=== PATIENT | male | born 1950 | race Two or more races ===

== ENCOUNTER 2022-10-23 10:13 | Inpatient (IN) | payer OTHER, MEDICAID ==
[~2022-10-23] VITALS: Ht 170.2 cm; Wt 56.7 kg
[2022-10-23] MEDS: ALBUTEROL 6.7GM HFA INHALER ORI SCH (08:58)
[2022-10-23 11:36] LABS: HEMATOCRIT. 38.2 % (42.0-52.0); HEMOGLOBIN. 12.5 g/dL (14.0-18.0); MEAN CORPUSCULAR HGB CONC 32.8 g/dL (31.0-37.0); MEAN CORPUSCULAR VOLUME 94.4 fL (80.0-94.0); MEAN PLATELET VOLUME 8.6 fl (7.4-10.4); PLATELET 179 x1000/uL (130-400); RED BLOOD CELL COUNT 4.05 mill/uL (4.7-6.1); RED CELL DISTRIBUTION WIDTH 13.2 % (11.6-14.6); WHITE BLOOD COUNT 13.5 x1000/uL (4.5-11.0)
[2022-10-23 11:39] LABS: DIFFERENTIAL COMMENT 1
[2022-10-23] MEDS ORDERED: AZITHROMYCIN 500MG/250ML 250 ML IV ONE (11:45)
[2022-10-23] MEDS ORDERED: CEFTRIAXONE 1GM PREMIX 50 ML IV ONE (11:45)
[2022-10-23 12:17] LABS: ALBUMIN 3.3 g/dL (3.4-5.0); CALCIUM 8.7 mg/dL (8.5-10.1); CARBON DIOXIDE 36 mEq/L (21-32); CHLORIDE 100 mEq/L (98-107); GLUCOSE 122 mg/dL (70-105); INDEX HEMOLYSI 1 (1-3); INDEX ICTERIC 1 (1-4); INDEX LIPEMIC 1 (1-3); POTASSIUM 4.2 mEq/L (3.5-5.1); SODIUM 139 mEq/L (136-145); UREA NITROGEN BLOOD 20 mg/dL (7-21)
[2022-10-23 12:24] LABS: ASPARTATE AMINOTRANSFERASE 24 IU/L (15-37); BILIRUBIN TOTAL 0.3 mg/dL (0.1-1.0); CREATININE 0.6 mg/dL (0.6-1.3); NT PRO B-TYPE NATRIURETIC PEP 100 pg/mL (5-125); PROTEIN TOTAL 7.2 g/dL (6.0-8.3); TROPONIN I HIGH SENSITIVITY 11 ng/L (<78)
[2022-10-23 13:08] LABS: BG BASE EXCESS 10.7 mmol/L (-2.0-2.0); BG CARBOXYHEMOGLOBIN 0.5 % (0.5-1.5); BG DEOXYHEMOGLOBIN 2.8 % (0.0-5.0); BG FRACTION INSPIRED OXYGEN 40; BG HCO3 ACT 42.4 mmol/L (22.0-26.0); BG METHEMOGLOBIN 0.2 % (0.0-1.5); BG OXYGEN SATURATION 97.2 % (92.0-98.5); BG OXYHEMOGLOBIN 96.5 % (94.0-97.0); BG PCO2 101.1 mmHg (35.0-45.0); BG PO2 101.8 mmHg (75.0-100.0); BG SAMPLE SITE RIGHT RADIAL; BG TOTAL HEMOGLOBIN 13.6 g/dL (12.0-18.0); BG VENT MODE NASAL CANNULA
[2022-10-23 13:10] VITALS: RESP 22
[2022-10-23] MEDS ORDERED: SODIUM CHLORIDE 0.9% 1000ML BAG (SEPSIS BOLUS) IV NR (13:45)
[2022-10-23] MEDS ORDERED: BUDESONIDE 0.5MG/2ML NEB HHN SCH (14:15)
[2022-10-23] MEDS ORDERED: IPRATROPIUM/ALBUTEROL 0.5-3(2.5)MG/3ML NEB HHN PRN (14:15)
[2022-10-23] MEDS ORDERED: LIDOCAINE HCL 1% 10 MG/ML 10ML VIAL ONE (14:16)
[2022-10-23 14:22] LABS: ALANINE AMINOTRANSFERASE 22 IU/L (13-61)
[2022-10-23] MEDS ORDERED: SODIUM CHLORIDE 0.9% 500 ML IV NR ×2 (15:30→21:30)
[2022-10-23] MEDS ORDERED: ONDANSETRON HCL 4MG/2ML INJ IV PRN (15:30)
[2022-10-23] MEDS ORDERED: NA PHOS,M-B/NA PHOS,DI-BA ENEMA 118ML PR PRN (15:30)
[2022-10-23] MEDS ORDERED: DOCUSATE SODIUM 100MG CAPSULE PO PRN (15:30)
[2022-10-23] MEDS ORDERED: MAGNESIUM/ALUMINUM HYDROXIDE/SIMETHICONE 30ML UDC PO PRN (15:30)
[2022-10-23] MEDS ORDERED: CLONIDINE 0.1MG TABLET PO PRN (15:30)
[2022-10-23] MEDS ORDERED: ACETAMINOPHEN 325MG TABLET PO PRN ×2 (15:30)
[2022-10-23 15:35] VITALS: RESP 25
[2022-10-23] MEDS ORDERED: SODIUM CHLORIDE 0.9% 1,000 ML IV SCH (15:45)
[2022-10-23 16:35] LABS: BG DEOXYHEMOGLOBIN 6.8 % (0.0-5.0); BG FRACTION INSPIRED OXYGEN 40; BG METHEMOGLOBIN 0.3 % (0.0-1.5); BG OXYGEN SATURATION 93.1 % (92.0-98.5); BG OXYHEMOGLOBIN 91.9 % (94.0-97.0); BG PH 7.299 (7.350-7.450); BG PO2 64.6 mmHg (75.0-100.0); BG SAMPLE SITE RIGHT RADIAL; BG TOTAL HEMOGLOBIN 12.8 g/dL (12.0-18.0); BG VENT MODE MASK - BIPAP
[2022-10-23 16:43] LABS: PLATELET ESTIMATE NORMAL
[2022-10-23 16:44] LABS: ANISOCYTOSIS 1+
[2022-10-23] MEDS: DEXAMETHASONE 10 MG/ML VIAL IV SCH (16:44)
[2022-10-23] MEDS: SODIUM CHLORIDE 0.9% 1,000 ML IV SCH (17:34)
[2022-10-23] MEDS: ENOXAPARIN 40MG/0.4ML SYR SUBCUT SCH (17:34)
[2022-10-23] MEDS ORDERED: IPRATROPIUM/ALBUTEROL 0.5-3(2.5)MG/3ML NEB HHN SCH (18:00)
[2022-10-23 18:15] LABS: LACTIC ACID 2.2 mmol/L (0.4-2.0)
[2022-10-24] VITALS (13 sets, daily range): BP systolic 91–111; BP diastolic 54–72; PULSE 78–154; RESP 16–26; TEMP 97.4–99.8; O2SAT 94
[2022-10-24] MEDS: ALBUTEROL 6.7GM HFA INHALER ORI SCH ×3 (00:22→21:22)
[2022-10-24 08:04] LABS: CLARITY URINE CLEAR (CLEAR); COLOR URINE DARK YELLOW (YELLOW); GLUCOSE URINE NEGATIVE (NEGATIVE); KETONES URINE NEGATIVE (NEGATIVE); LEUKOCYTE ESTERASE URINE NEGATIVE (NEGATIVE); NITRITE URINE NEGATIVE (NEGATIVE); OCCULT BLOOD URINE TRACE (NEGATIVE); PH URINE 5.5 (4.5-8.0); PROTEIN URINE 2+ (NEGATIVE); SPECIFIC GRAVITY URINE 1.028 (1.005-1.030); UROBILINOGEN URINE 0.2 E.U./dL (0.2-1.0)
[2022-10-24 08:22] LABS: BACTERIA URINE 1+
[2022-10-24 08:24] LABS: TRICHOMONAS URINE FEW
[2022-10-24 08:28] LABS: MUCUS URINE 1+ /lpf (NONE/TRACE)
[2022-10-24 08:29] LABS: SQUAMOUS EPITHELIAL CELL URINE NONE SEEN /lpf (RARE/1+)
[2022-10-24 08:31] LABS: BG BASE EXCESS 8.8 mmol/L (-2.0-2.0); BG CARBOXYHEMOGLOBIN 0.3 % (0.5-1.5); BG DEOXYHEMOGLOBIN 4.1 % (0.0-5.0); BG FRACTION INSPIRED OXYGEN 40; BG HCO3 ACT 37.1 mmol/L (22.0-26.0); BG METHEMOGLOBIN 0.3 % (0.0-1.5); BG OXYGEN SATURATION 95.9 % (92.0-98.5); BG OXYHEMOGLOBIN 95.3 % (94.0-97.0); BG PCO2 70.4 mmHg (35.0-45.0); BG PO2 81.9 mmHg (75.0-100.0); BG SAMPLE SITE RIGHT RADIAL; BG TOTAL HEMOGLOBIN 12.8 g/dL (12.0-18.0); BG VENT MODE MASK - BIPAP
[2022-10-24] MEDS ORDERED: CEFTRIAXONE 1,000 MG in DEXTROSE 5% WATER 50 ML IV SCH (09:00)
[2022-10-24] MEDS ORDERED: CEFTRIAXONE 1GM PREMIX 50 ML IV SCH (09:00)
[2022-10-24 09:04] LABS: *AMPHETAMINES SCREEN URINE NEGATIVE (NEGATIVE); *BARBITURATES SCREEN URINE NEGATIVE (NEGATIVE); *BENZODIAZEPINES SCREEN URINE NEGATIVE (NEGATIVE); *COCAINE SCREEN URINE NEGATIVE (NEGATIVE); CANNABINOID URINE SCREEN NEGATIVE (NEGATIVE); ECSTASY MDMA SCREEN URINE NEGATIVE (NEGATIVE); METHADONE URINE SCREEN NEGATIVE (NEGATIVE); OPIATES URINE SCREEN NEGATIVE (NEGATIVE); PHENCYCLIDINE URINE SCREEN NEGATIVE (NEGATIVE)
[2022-10-24] MEDS: DEXAMETHASONE 10 MG/ML VIAL IV SCH (09:10)
[2022-10-24] MEDS ORDERED: AZITHROMYCIN 500MG/250ML 250 ML IV NR (09:30)
[2022-10-24] MEDS ORDERED: CEFTRIAXONE 1GM PREMIX 50ML IV NR (09:30)
[2022-10-24] MEDS ORDERED: RISP2TAB85 PO (15:18)
[2022-10-24] MEDS: RISPERIDONE 1MG TABLET PO SCH (15:38)
[2022-10-24] MEDS ORDERED: METRONIDAZOLE 500MG TABLET PO NR (17:00)
[2022-10-24 18:11] LABS: HEMATOCRIT. 35.6 % (42.0-52.0); HEMOGLOBIN. 11.6 g/dL (14.0-18.0); MEAN CORPUSCULAR HEMOGLOBIN 30.6 pg (28.0-32.0); MEAN CORPUSCULAR HGB CONC 32.7 g/dL (31.0-37.0); MEAN CORPUSCULAR VOLUME 93.5 fL (80.0-94.0); MEAN PLATELET VOLUME 9.1 fl (7.4-10.4); PLATELET 172 x1000/uL (130-400); RED CELL DISTRIBUTION WIDTH 12.8 % (11.6-14.6); WHITE BLOOD COUNT 9.5 x1000/uL (4.5-11.0)
[2022-10-24 18:14] LABS: DIFFERENTIAL COMMENT 1
[2022-10-24] MEDS: ENOXAPARIN 40MG/0.4ML SYR SUBCUT SCH (18:29)
[2022-10-24 18:33] LABS: CHLORIDE 100 mEq/L (98-107); INDEX HEMOLYSI 1 (1-3); INDEX ICTERIC 1 (1-4); INDEX LIPEMIC 1 (1-3); POTASSIUM 4.2 mEq/L (3.5-5.1); SODIUM 138 mEq/L (136-145)
[2022-10-24 18:50] LABS: ALANINE AMINOTRANSFERASE 41 IU/L (13-61); ALBUMIN 2.8 g/dL (3.4-5.0); ASPARTATE AMINOTRANSFERASE 43 IU/L (15-37); BILIRUBIN TOTAL 0.2 mg/dL (0.1-1.0); CALCIUM 8.8 mg/dL (8.5-10.1); CARBON DIOXIDE 37 mEq/L (21-32); CHOLESTEROL 100 mg/dL (<200); CREATININE 0.4 mg/dL (0.6-1.3); GLUCOSE 145 mg/dL (70-105); HAPTOGLOBIN 308 mg/dL (30-200); HDL CHOLESTEROL 63 mg/dL (40-59); IRON 20 ug/dL (50-175); LACTATE DEHYDROGENASE 157 IU/L (100-240); LDL CHOLESTEROL 32 mg/dL (5-100); PROTEIN TOTAL 6.5 g/dL (6.0-8.3); THYROID STIMULATING HORMONE 0.47 uIU/mL (0.36-3.74); TOTAL IRON BINDING CAPACITY 265 ug/dL (250-450); TRIGLYCERIDE 46 mg/dL (0-150); UREA NITROGEN BLOOD 16 mg/dL (7-21)
[2022-10-24 19:05] LABS: FOLIC ACID (FOLATE) SERUM 19.9 ng/mL (>5.38)
[2022-10-24 19:25] LABS: PLATELET ESTIMATE NORMAL
[2022-10-25] VITALS (17 sets, daily range): BP systolic 90–167; BP diastolic 51–92; PULSE 68–110; RESP 18–37; TEMP 97.8–98.5
[2022-10-25] MEDS: ALBUTEROL 6.7GM HFA INHALER ORI SCH ×3 (01:28→22:22)
[2022-10-25 07:27] LABS: HEMATOCRIT 33.2 % (42.0-52.0); HEMOGLOBIN 11.1 g/dL (14.0-18.0); MEAN CORPUSCULAR HEMOGLOBIN 30.8 pg (28.0-32.0); MEAN CORPUSCULAR HGB CONC 33.3 g/dL (31.0-37.0); MEAN CORPUSCULAR VOLUME 92.4 fL (80.0-94.0); PLATELET 179 x1000/uL (130-400); RED BLOOD CELL COUNT 3.59 mill/uL (4.7-6.1); RED CELL DISTRIBUTION WIDTH 12.6 % (11.6-14.6); WHITE BLOOD COUNT 8.1 x1000/uL (4.5-11.0)
[2022-10-25 07:51] LABS: CHLORIDE 100 mEq/L (98-107); INDEX HEMOLYSI 1 (1-3); INDEX ICTERIC 1 (1-4); INDEX LIPEMIC 1 (1-3); SODIUM 140 mEq/L (136-145)
[2022-10-25 08:00] LABS: CALCIUM 8.9 mg/dL (8.5-10.1); CARBON DIOXIDE 39 mEq/L (21-32); CREATININE 0.5 mg/dL (0.6-1.3); GLUCOSE 98 mg/dL (70-105); UREA NITROGEN BLOOD 17 mg/dL (7-21)
[2022-10-25 08:52] LABS: BG BASE EXCESS 13.5 mmol/L (-2.0-2.0); BG CARBOXYHEMOGLOBIN 0.3 % (0.5-1.5); BG DEOXYHEMOGLOBIN 3.8 % (0.0-5.0); BG FRACTION INSPIRED OXYGEN 30; BG HCO3 ACT 42.2 mmol/L (22.0-26.0); BG METHEMOGLOBIN 0.5 % (0.0-1.5); BG OXYGEN SATURATION 96.2 % (92.0-98.5); BG OXYHEMOGLOBIN 95.4 % (94.0-97.0); BG PCO2 78.6 mmHg (35.0-45.0); BG PH 7.348 (7.350-7.450); BG PO2 87.9 mmHg (75.0-100.0); BG SAMPLE SITE LEFT BRACHIAL; BG TOTAL HEMOGLOBIN 11.8 g/dL (12.0-18.0); BG VENT MODE NASAL CANNULA
[2022-10-25] MEDS: SODIUM CHLORIDE 0.9% 1,000 ML IV SCH (09:00)
[2022-10-25] MEDS ORDERED: AZITHROMYCIN 500 MG in DEXT 5% WATER 250 ML IV SCH (09:00)
[2022-10-25] MEDS: RISPERIDONE 1MG TABLET PO SCH (12:01)
[2022-10-25] MEDS: CEFTRIAXONE 1,000 MG in DEXTROSE 5% WATER 50 ML IV SCH (12:01)
[2022-10-25] MEDS: DEXAMETHASONE 10 MG/ML VIAL IV SCH (12:02)
[2022-10-25 12:14] LABS: BG BASE EXCESS 12.6 mmol/L (-2.0-2.0); BG CARBOXYHEMOGLOBIN 0.4 % (0.5-1.5); BG DEOXYHEMOGLOBIN 4.4 % (0.0-5.0); BG FRACTION INSPIRED OXYGEN 40; BG HCO3 ACT 39.1 mmol/L (22.0-26.0); BG METHEMOGLOBIN 0.2 % (0.0-1.5); BG OXYGEN SATURATION 95.6 % (92.0-98.5); BG PCO2 59.9 mmHg (35.0-45.0); BG PH 7.433 (7.350-7.450); BG PO2 73.8 mmHg (75.0-100.0); BG SAMPLE SITE LEFT RADIAL; BG TOTAL HEMOGLOBIN 12.2 g/dL (12.0-18.0); BG TOTAL RESPIRATORY RATE 31 b/min; BG VENT MODE MASK - BIPAP
[2022-10-25] MEDS: LAMOTRIGINE 25MG TABLET PO SCH ×2 (13:43→20:45)
[2022-10-25] MEDS: AZITHROMYCIN 500 MG in DEXT 5% WATER 250 ML IV SCH (17:37)
[2022-10-25] MEDS: ENOXAPARIN 40MG/0.4ML SYR SUBCUT SCH (17:37)
[2022-10-26] VITALS (17 sets, daily range): BP systolic 99–148; BP diastolic 25–81; PULSE 58–160; RESP 17–32; TEMP 97.6–98.2; O2SAT 96
[2022-10-26] MEDS: ALBUTEROL 6.7GM HFA INHALER ORI SCH ×4 (03:04→20:13)
[2022-10-26 07:29] LABS: HEMATOCRIT 37.8 % (42.0-52.0); HEMOGLOBIN 12.6 g/dL (14.0-18.0); MEAN CORPUSCULAR HEMOGLOBIN 30.9 pg (28.0-32.0); MEAN CORPUSCULAR HGB CONC 33.2 g/dL (31.0-37.0); MEAN CORPUSCULAR VOLUME 93.2 fL (80.0-94.0); PLATELET 203 x1000/uL (130-400); RED BLOOD CELL COUNT 4.06 mill/uL (4.7-6.1); WHITE BLOOD COUNT 7.8 x1000/uL (4.5-11.0)
[2022-10-26 08:40] LABS: CALCIUM 8.9 mg/dL (8.5-10.1); CARBON DIOXIDE 37 mEq/L (21-32); CHLORIDE 98 mEq/L (98-107); CREATININE 0.5 mg/dL (0.6-1.3); GLUCOSE 102 mg/dL (70-105); INDEX HEMOLYSI 1 (1-3); INDEX ICTERIC 1 (1-4); INDEX LIPEMIC 1 (1-3); POTASSIUM 3.8 mEq/L (3.5-5.1); SODIUM 141 mEq/L (136-145); UREA NITROGEN BLOOD 17 mg/dL (7-21)
[2022-10-26 08:59] LABS: BG CARBOXYHEMOGLOBIN 0.8 % (0.5-1.5); BG DEOXYHEMOGLOBIN 8.3 % (0.0-5.0); BG HCO3 ACT 40.4 mmol/L (22.0-26.0); BG METHEMOGLOBIN 0.1 % (0.0-1.5); BG OXYGEN SATURATION 91.6 % (92.0-98.5); BG OXYHEMOGLOBIN 90.8 % (94.0-97.0); BG PCO2 72.3 mmHg (35.0-45.0); BG PH 7.365 (7.350-7.450); BG PO2 64.1 mmHg (75.0-100.0); BG SAMPLE SITE RIGHT BRACHIAL; BG TOTAL HEMOGLOBIN 12.9 g/dL (12.0-18.0); BG VENT MODE MASK - BIPAP
[2022-10-26] MEDS: DEXAMETHASONE 10 MG/ML VIAL IV SCH (10:21)
[2022-10-26] MEDS: CEFTRIAXONE 1,000 MG in DEXTROSE 5% WATER 50 ML IV SCH (10:22)
[2022-10-26] MEDS: RISPERIDONE 1MG TABLET PO SCH (10:22)
[2022-10-26] MEDS: LAMOTRIGINE 25MG TABLET PO SCH ×2 (10:22→21:00)
[2022-10-26] MEDS: ENOXAPARIN 40MG/0.4ML SYR SUBCUT SCH (17:33)
[2022-10-26] MEDS: AZITHROMYCIN 500 MG in DEXT 5% WATER 250 ML IV SCH (17:33)
[2022-10-27] VITALS (14 sets, daily range): BP systolic 102–166; BP diastolic 56–79; PULSE 65–120; RESP 14–32; TEMP 97.3–98.6; O2SAT 94
[2022-10-27] MEDS: SODIUM CHLORIDE 0.9% 1,000 ML IV SCH (01:00)
[2022-10-27] MEDS: ALBUTEROL 6.7GM HFA INHALER ORI SCH ×2 (02:10→21:43)
[2022-10-27 07:12] LABS: HEMATOCRIT 35.8 % (42.0-52.0); HEMOGLOBIN 12.1 g/dL (14.0-18.0); MEAN CORPUSCULAR HEMOGLOBIN 30.9 pg (28.0-32.0); MEAN CORPUSCULAR HGB CONC 33.8 g/dL (31.0-37.0); MEAN CORPUSCULAR VOLUME 91.5 fL (80.0-94.0); PLATELET 206 x1000/uL (130-400); RED BLOOD CELL COUNT 3.91 mill/uL (4.7-6.1); WHITE BLOOD COUNT 6.3 x1000/uL (4.5-11.0)
[2022-10-27 07:37] LABS: CHLORIDE 97 mEq/L (98-107); INDEX HEMOLYSI 1 (1-3); INDEX ICTERIC 1 (1-4); INDEX LIPEMIC 1 (1-3); SODIUM 140 mEq/L (136-145)
[2022-10-27 07:44] LABS: CALCIUM 8.7 mg/dL (8.5-10.1); CARBON DIOXIDE 37 mEq/L (21-32); CREATININE 0.4 mg/dL (0.6-1.3); GLUCOSE 71 mg/dL (70-105); UREA NITROGEN BLOOD 13 mg/dL (7-21)
[2022-10-27] MEDS: CEFTRIAXONE 1,000 MG in DEXTROSE 5% WATER 50 ML IV SCH (09:27)
[2022-10-27] MEDS: DEXAMETHASONE 10 MG/ML VIAL IV SCH (09:29)
[2022-10-27] MEDS: LAMOTRIGINE 25MG TABLET PO SCH ×2 (09:29→21:00)
[2022-10-27] MEDS: RISPERIDONE 1MG TABLET PO SCH (09:29)
[2022-10-27 14:25] LABS: BG BASE EXCESS 12.2 mmol/L (-2.0-2.0); BG CARBOXYHEMOGLOBIN 0.7 % (0.5-1.5); BG DEOXYHEMOGLOBIN 6.2 % (0.0-5.0); BG FRACTION INSPIRED OXYGEN 35; BG HCO3 ACT 39.4 mmol/L (22.0-26.0); BG METHEMOGLOBIN 0.2 % (0.0-1.5); BG OXYGEN SATURATION 93.7 % (92.0-98.5); BG OXYHEMOGLOBIN 92.9 % (94.0-97.0); BG PCO2 62.9 mmHg (35.0-45.0); BG PH 7.415 (7.350-7.450); BG PO2 71.3 mmHg (75.0-100.0); BG SAMPLE SITE RIGHT BRACHIAL; BG TOTAL HEMOGLOBIN 13.4 g/dL (12.0-18.0); BG TOTAL RESPIRATORY RATE 27 b/min; BG VENT MODE MASK - BIPAP
[2022-10-27] MEDS: AZITHROMYCIN 500 MG in DEXT 5% WATER 250 ML IV SCH (15:34)
[2022-10-27] MEDS: ENOXAPARIN 40MG/0.4ML SYR SUBCUT SCH (17:15)
[2022-10-28] VITALS (8 sets, daily range): BP systolic 99–139; BP diastolic 49–68; PULSE 61–82; RESP 20–27; TEMP 97.5–98.9; O2SAT 97
[2022-10-28] MEDS: ALBUTEROL 6.7GM HFA INHALER ORI SCH (01:13)
[2022-10-28 07:36] LABS: HEMATOCRIT 34.1 % (42.0-52.0); HEMOGLOBIN 11.2 g/dL (14.0-18.0); MEAN CORPUSCULAR HEMOGLOBIN 30.6 pg (28.0-32.0); MEAN CORPUSCULAR HGB CONC 32.8 g/dL (31.0-37.0); MEAN CORPUSCULAR VOLUME 93.3 fL (80.0-94.0); PLATELET 231 x1000/uL (130-400); RED BLOOD CELL COUNT 3.66 mill/uL (4.7-6.1); RED CELL DISTRIBUTION WIDTH 12.6 % (11.6-14.6); WHITE BLOOD COUNT 4.9 x1000/uL (4.5-11.0)
[2022-10-28] MEDS: SODIUM CHLORIDE 0.9% 1,000 ML IV SCH (07:58)
[2022-10-28 08:10] LABS: CALCIUM 8.4 mg/dL (8.5-10.1); INDEX HEMOLYSI 1 (1-3); INDEX ICTERIC 1 (1-4); INDEX LIPEMIC 1 (1-3)
[2022-10-28 08:19] LABS: CREATININE 0.5 mg/dL (0.6-1.3); GLUCOSE 100 mg/dL (70-105); UREA NITROGEN BLOOD 11 mg/dL (7-21)
[2022-10-28 08:47] LABS: CHLORIDE 100 mEq/L (98-107); SODIUM 140 mEq/L (136-145)
[2022-10-28 09:02] LABS: CARBON DIOXIDE 43 mEq/L (21-32)
[2022-10-28] MEDS: DEXAMETHASONE 10 MG/ML VIAL IV SCH (09:36)
[2022-10-28] MEDS: LAMOTRIGINE 25MG TABLET PO SCH (09:37)
[2022-10-28] MEDS: CEFTRIAXONE 1,000 MG in DEXTROSE 5% WATER 50 ML IV SCH (09:38)
[2022-10-28] MEDS: RISPERIDONE 1MG TABLET PO SCH (09:38)
[2022-10-28 10:08] LABS: BG BASE EXCESS 14.8 mmol/L (-2.0-2.0); BG CARBOXYHEMOGLOBIN 0.3 % (0.5-1.5); BG DEOXYHEMOGLOBIN 5.5 % (0.0-5.0); BG FRACTION INSPIRED OXYGEN 32; BG HCO3 ACT 43.3 mmol/L (22.0-26.0); BG METHEMOGLOBIN 0.3 % (0.0-1.5); BG OXYGEN SATURATION 94.5 % (92.0-98.5); BG OXYHEMOGLOBIN 93.9 % (94.0-97.0); BG PCO2 74.8 mmHg (35.0-45.0); BG PO2 74.9 mmHg (75.0-100.0); BG SAMPLE SITE LEFT BRACHIAL; BG TOTAL HEMOGLOBIN 12.6 g/dL (12.0-18.0); BG VENT MODE NASAL CANNULA
== END 2022-10-28 17:18 | disposition short-term general hospital (02) | DRG 871 ==
LOC: ER 10:13 → 5EST 13:10 → EDBEDREQSVC 13:12 → EDBEDREQTM 13:12 → EDBEDREQ 13:12 → SUPCPDRO 18:50
PROVIDERS: ADMIT Internal Medicine; ATTEND Internal Medicine
PROC: 02HV33Z Insertion of Infusion Device into Superior Vena Cava, Percutaneous Approach (ICD-10-PCS; principal; 2022-10-23)
PROC: B548ZZA Ultrasonography of Superior Vena Cava, Guidance (ICD-10-PCS; 2022-10-23)
PROC: 5A09357 Assistance with Respiratory Ventilation, Less than 24 Consecutive Hours, Continuous Positive Airway Pressure (ICD-10-PCS; 2022-10-23)
PROC: 5A09357 Assistance with Respiratory Ventilation, Less than 24 Consecutive Hours, Continuous Positive Airway Pressure (ICD-10-PCS; 2022-10-25)
PROC: 5A09357 Assistance with Respiratory Ventilation, Less than 24 Consecutive Hours, Continuous Positive Airway Pressure (ICD-10-PCS; 2022-10-27)
PROC: 5A09457 Assistance with Respiratory Ventilation, 24-96 Consecutive Hours, Continuous Positive Airway Pressure (ICD-10-PCS; 2022-10-28)
DX: A41.89 Other specified sepsis (principal); J12.82 Pneumonia due to coronavirus disease 2019; U07.1 COVID-19; J96.21 Acute and chronic respiratory failure with hypoxia; J96.22 Acute and chronic respiratory failure with hypercapnia; E44.0 Moderate protein-calorie malnutrition; J44.0 Chronic obstructive pulmonary disease with (acute) lower respiratory infection; Z68.1 Body mass index [BMI] 19.9 or less, adult; N39.0 Urinary tract infection, site not specified; E87.20 Acidosis, unspecified; R65.20 Severe sepsis without septic shock; D64.9 Anemia, unspecified; F20.9 Schizophrenia, unspecified; G40.909 Epilepsy, unspecified, not intractable, without status epilepticus; A59.9 Trichomoniasis, unspecified; D63.8 Anemia in other chronic diseases classified elsewhere; Z99.81 Dependence on supplemental oxygen; Z78.9 Other specified health status
CPT/HCPCS: 36415; 36573; 36600; 71045; 80048; 80053; 80061; 80305; 81003; 82375; 82607; 82728; 82746; 82805; 83010; 83036; 83540; 83550; 83605; 83615; 83880; 84145; 84439; 84443; 84484; 85025; 85027; 85044; 87426; 93005; 93970; 94640; 94660; 97162; 97166; 99291; C1725; C1893; C9803; J0456; J0696; J1100; J1650; J3490; J7030; J7060